=== PATIENT | male | born 1990 | race Caucasian/White ===

== ENCOUNTER 2023-07-17 10:37 | Emergency (ER) | payer OTHER ==
[2023-07-17 10:42] VITALS: RESP 16; TEMP 97.8; BMI 32.1
[2023-07-17] MEDS ORDERED: KETOROLAC TROMETHAMINE 15 MG/ML VIAL ONE (11:27)
[2023-07-17] MEDS ORDERED: ONDANSETRON *ODT* 4 MG TABLET ONE (11:27)
[2023-07-17] MEDS: KETOROLAC TROMETHAMINE 15 MG/ML VIAL IM ONE (11:34)
[2023-07-17] MEDS: ONDANSETRON *ODT* 4 MG TABLET SL ONE (11:35)
[2023-07-17] MEDS ORDERED: ACETAMINOPHEN 500 MG TABLET (FP) ONE (11:52)
[2023-07-17] MEDS: ACETAMINOPHEN 500 MG TABLET (FP) PO ONE (11:55)
[2023-07-17 11:58] VITALS: BP 135/94; PULSE 79
== END 2023-07-17 12:05 | disposition home or self-care (01) ==
LOC: FER 10:37
PROC: 3E0233Z Introduction of Anti-inflammatory into Muscle, Percutaneous Approach (ICD-10-PCS; principal; 2023-07-17)
DX: I10 Essential (primary) hypertension (principal); Z20.822 Contact with and (suspected) exposure to COVID-19
CPT/HCPCS: 0241U-QW; 93005; 99284-25; Q0162

== ENCOUNTER 2023-07-19 17:19 | Emergency (ER) | payer OTHER ==
[2023-07-19 17:32] VITALS: BP 151/97; PULSE 87; RESP 18; TEMP 98.8; BMI 32.1
[2023-07-19] MEDS ORDERED: ACETAMINOPHEN 325 MG TABLET (FP) ONE (18:24)
[2023-07-19] MEDS: ACETAMINOPHEN 325 MG TABLET (FP) PO ONE (18:26)
== END 2023-07-19 18:35 | disposition home or self-care (01) ==
LOC: FER 17:19
DX: R51.9 Headache, unspecified (principal); R07.89 Other chest pain
CPT/HCPCS: 99283-25